=== PATIENT | male | born 1960 | race Caucasian/White ===

== ENCOUNTER 2022-03-29 11:55 | Observation (INO) | payer OTHER, SELFPAY ==
[2022-03-29] VITALS (8 sets, daily range): BP systolic 141–163; BP diastolic 88–106; PULSE 66–103; RESP 16–20; TEMP 36.6–36.8; O2SAT 96–100; BMI 30.7; BMI 28.7
--- NOTE | ~2022-03-29 | CT_ITS ---
EXAMINATION: CT diagnostic chest wo con DATE: 03/29/2022 13:16 INDICATION: Possible right upper lobe mass on x-ray TECHNIQUE: Computed tomography (CT) of the chest was performed without intravenous contrast. The dose -length product (DLP) was 531.53 mGy-cm. Automated exposure control and iterative reconstruction tech [employer] were employed. COMPARISON: Chest radiograph from today FINDINGS: No suspicious mass is identified. There is mild dependent atelectasis. Chest radiographic f indings likely reflect superimposed vascular and osseous structures. No pathologically enlarged thora cic lymph nodes are identified. The heart size is normal. There is mild thoracic spondylosis. IMPRESSION: 1. No CT correlate for the patient's symptoms. No suspicious lung mass identified. Reviewed, dictated and finalized at location A. IMPRESSION: 1. No CT correlate for the patient's symptoms. No suspicious lung mass identifi ed.
--- NOTE | ~2022-03-29 | CT_ITS ---
EXAMINATION: CT brain wo con INDICATION: Right-sided weakness COMPARISON: None TECHNIQUE: Standard unenhanced head CT. The dose-length product (DLP) was 605.33 mGy-cm. The mA was a djusted according to patient size. Iterative reconstruction technique was employed. FINDINGS: There is subtle low-attenuation involving the left caudate and anterior limb of the left in ternal capsule as well as in the posterior limb of the right internal capsule. The ventricles are nor mal. There is no abnormal mass effect or midline shift. The basal cisterns are patent. Intracranial c alcified cerebral atherosclerosis is noted. The orbits are normal. There are bilateral mastoid effusi ons. IMPRESSION: 1. Subtle areas of low attenuation as detailed above, consistent with age indeterminate infarct. Reviewed, dictated and finalized at location A. IMPRESSION: 1. Subtle areas of low attenuation as detailed above, consistent with age indet erminate infarct.
--- NOTE | ~2022-03-29 | MR_ITS ---
EXAMINATION: MR brain/brain stem wo/w con DATE: 03/30/2022 08:04 INDICATION: Right-sided weakness TECHNIQUE: Magnetic resonance imaging (MRI) of the brain and brainstem was performed without and with 18 mL Multihance intravenous contrast. Sequences included sagittal and axial T1-weighted SE, axial d iffusion-weighted FS SE, axial T2*-weighted GRE, axial 3D SWAN, axial T2-weighted FLAIR, and axial T2 -weighted FSE. Postcontrast axial and coronal T1-weighted SE was obtained. Apparent diffusion coeffic ient (ADC) maps were created. COMPARISON: Head CT and CT angiogram dated 03/29/2022 FINDINGS: There are no areas of restricted diffusion to suggest acute infarction. Small old lacunar infarcts in the periventricular anterior left frontal lobe white matter and in the left sublingual. No intracran ial hemorrhage or abnormal intracranial mass lesion. There are scattered areas of nonspecific increas ed T2-weighted signal intensity in the cerebral white matter, predominantly involving the deep and pe riventricular white matter. There are no intraparenchymal signal abnormalities seen on the other puls e sequences. The ventricles are symmetric and normal in size. There are no abnormal extra-axial fluid collections. Flow voids are seen in the cerebral arteries on the T2-weighted sequences consistent wi th their expected patency. Bilateral mastoid effusions, right greater than left. Small right maxillar y sinus with thickened sinus ramesh are evident on prior CT consistent with chronic sinusitis. Mild mu cosal thickening the bilateral ethmoid sinuses. Visualized orbits and soft tissues are unremarkable. There are no areas of abnormal enhancement on the post contrast images. IMPRESSION: 1. No acute intracranial process. 2. Small old lacunar infarcts at the left basal ganglia and periventricular left frontal lobe white m atter. 3. Mild scattered white matter T2 hyperintensity consistent with chronic small vessel ischemic diseas e. 4. Bilateral mastoid effusions, right greater than left. 5. Chronic right maxillary sinusitis. Reviewed, dictated and finalized at location A. IMPRESSION: 1. No acute intracranial process. 2. Small old lacunar infarcts at the left basal ganglia and periventricular lef t frontal lobe white matter. 3. Mild scattered white matter T2 hyperintensity consistent with chronic small vessel ischemic disease. 4. Bilateral mastoid effusions, right greater than left. 5. Chronic right maxillary sinusitis.
--- NOTE | ~2022-03-29 | CT_ITS ---
EXAMINATION: CTA brain carotid DATE: 03/29/2022 13:16 INDICATION: Right-sided weakness TECHNIQUE: Computed tomographic angiography (CTA) of the head was performed without and with 100 mL O [id number] intravenous contrast. CTA of the neck was performed with intravenous contrast. The dose- length product was 1283.51 mGy-cm. Maximum intensity projection and volume rendered 3D-reconstruction s were created by the technologist on a separate workstation. Automated exposure control and iterativ e reconstruction technique were employed. COMPARISON: None. FINDINGS: HEAD CTA: Again seen are subtle areas of hypoattenuation involving the left caudate, anterior limb of the left internal capsule, and the posterior limb of the right internal capsule. Also seen is a subt le area of low attenuation in the anterior to the anterior horn of the left lateral ventricle. Intrac ranial calcified cerebral atherosclerosis is noted. There is no intracranial hemorrhage or abnormal mass lesion. The ventricles are normal. There is no abnormal mass effect or midline shift. The basal cisterns are patent. The orbits are normal. The paranasal sinuses, mastoids and calvarium are normal. There is no significant stenosis of the basilar artery or posterior cerebral arteries. There is no si gnificant stenosis of the intracranial internal carotid arteries or the anterior or middle cerebral a rteries. The anterior communicating artery and right posterior communicating arteries are normal. The left posterior communicating artery is hypoplastic. There is no aneurysm. NECK CTA: The thyroid gland is unremarkable. The submandibular and parotid glands are symmetric. Ther e is no lymphadenopathy. There are no masses identified. The airway is unremarkable. There is moderat e cervical spondylosis at C5-6. The superior mediastinum is unremarkable. There is 0% stenosis of the proximal right internal carotid artery relative to normal distal artery l umen diameter (NASCET criteria). There is 0% stenosis of the proximal left internal carotid artery re lative to normal distal artery lumen diameter. IMPRESSION: 1. Areas of low-attenuation as detailed above, consistent with age indeterminate infarct. Hypoplastic left posterior communicating artery, otherwise normal head CTA. 2. 0% stenosis of the proximal right internal carotid artery relative to normal distal artery lumen d iameter (NASCET criteria). 3. 0% stenosis of the proximal left internal carotid artery relative to normal distal artery lumen di ameter. Reviewed, dictated and finalized at location A. IMPRESSION: 1. Areas of low-attenuation as detailed above, consistent with age indeterminat e infarct. Hypoplastic left posterior communicating artery, otherwise normal he ad CTA. 2. 0% stenosis of the proximal right internal carotid artery relative to normal distal artery lumen diameter (NASCET criteria). 3. 0% stenosis of the proximal left internal carotid artery relative to normal distal artery lumen diameter.
--- NOTE | ~2022-03-29 | XR_ITS ---
EXAMINATION: XR chest 1V portable INDICATION: Right-sided weakness TECHNIQUE: Portable AP chest at 1212 hours COMPARISON: None available FINDINGS: There is asymmetric focal opacification of the right lung apex. No pleural effusion or pneu mothorax. The cardiomediastinal silhouette is normal. IMPRESSION: 1. Asymmetric focal opacification of the right lung apex which could reflect superimposed vascular an d osseous structures however, further evaluation with chest CT is recommended to evaluate for soft ti ssue mass. Reviewed, dictated and finalized at location A. IMPRESSION: 1. Asymmetric focal opacification of the right lung apex which could reflect morrison perimposed vascular and osseous structures however, further evaluation with uzri st CT is recommended to evaluate for soft tissue mass.
--- NOTE | 2022-03-29 12:14 | ED.NEUROSD ---
HPI - Neuro Symptoms/Deficit General Chief Complaint: Neuro Symptoms/Deficit Stated Complaint: Right Arm/Leg Weakness Time Seen by Provider: 03/29/22 12:02 Source: RN notes reviewed History of Present Illness HPI Narrative: Patient presents emergency department from home via EMS for right-sided weakness. Patient states symptoms began approximately 10:15 AM. He states his nephew called and they were going to play fortnight while when he began to notice that when he was using control he was having difficulty using his right thumb he states he then noticed he was having some problems speaking and finding the right words patient states at that time he had gotten up and noticed his right leg was also weak as well as his right arm he had gone to the [employer] store to get aspirin and water as he felt he had been dehydrated states his symptoms improved but then came back at the store he states that this time he is feeling better and all symptoms have resolved he denied having fevers or chills he denied chest pain shortness of breath abdominal pain nausea vomiting or any other symptoms Related Data Allergies Allergy/AdvReac Type Severity Reaction Status Date / Time Penicillins Allergy Hives Verified 03/29/22 13:39 Review of Systems Review of Systems: Gen.: Denies fevers or chills Eyes: Denies eye pain or visual change ENT: Denies congestion Respiratory: Denies shortness of breath or cough CV: Denies chest pain or palpitations GI: Denies abdominal pain nausea, emesis or diarrhea denies burning, urgency, frequency or hematuria Musculoskeletal: Denies back pain or muscle pain Neuro: See HPI Skin: Denies rash Except as documented, all other systems reviewed and negative [facility] Past Medical History Medical History (Updated 03/29/22 @ 14:28 by Devon Al DO) Patient denies significant medical history Social History Social History (Updated 03/29/22 @ 12:18 by Devon Al DO) Smoking status: Never smoker Exam Narrative: APPEARANCE: No acute distress, nontoxic, resting in bed HEENT: Normocephalic, atraumatic, OMM, TMs clear bilaterally EYES: PERRL, EOMI NECK: Supple, nontender, full range of motion without pain, no meningismus RESPIRATORY: No respiratory distress, clear to auscultation bilaterally with no rhonchi wheezing or rales CARDIOVASCULAR: RRR s murmur ABDOMINAL: Soft, nontender, nondistended MUSCULOSKELETAL: Moves all extremities. No clubbing, cyanosis or edema. NEURO: A and O ?3, following commands, speech normal, cranial nerves II through XII grossly intact,muscle strength 5 out of 5 bilateral upper and lower extremities SKIN:: Warm, dry. Normal Color PSYCHIATRIC: Normal affect/mood Course Course Emergency Course: Discussed with Dr. Velásquez agrees with consult recommends patient start on aspirin 325 mg as well as Plavix agrees with consult recommends CT of the head as well as MRI Discussed with JESSICA Henriquez for Dr. Paz agrees with admission Discussed with patient and family results of workup and diagnosis. Discussed need for admission. Patient and family understand and agree to current treatment plan Vital Signs Vital signs: Vital Signs Temperature 98.2 F 03/29/22 12:03 Pulse Rate 103 H 03/29/22 12:03 Respiratory Rate 20 03/29/22 12:03 Blood Pressure 163/106 H 03/29/22 12:03 Pulse Oximetry 100 03/29/22 12:03 Temperature 98.2 F 03/29/22 12:03 Pulse Rate 101 H 03/29/22 12:10 Respiratory Rate 17 03/29/22 12:10 Blood Pressure 163/106 H 03/29/22 12:10 Pulse Oximetry 100 03/29/22 12:40 MDM - Neuro Symptoms/Deficit Lab Data Result diagrams: 03/29/22 12:09 03/29/22 12:09 Labs: Lab Results 03/29/22 03/29/22 03/29/22 Range/Units 12:09 12:09 12:09 WBC 8.4 (4.5-10.0) K/mm3 RBC 5.82 (4.6-6.20) M/mm3 Hgb 17.4 (14.0-18.0) g/dL Hct 51.0 (42.0-52.0) % MCV 87.6 (80-100) fl MCH 29.9 (26-34) pg MCHC 34.1
[2022-03-29 12:19] LABS: Basophils Percent Auto 0.5 % (0.2-1.2); Eosinophils Absolute Auto 0.2 K/mm3 (0-0.3); Eosinophils Percent Auto 2.5 % (0-4.4); Hemoglobin 17.4 g/dL (14.0-18.0); Immature Granulocyte Absolute 0.05 K/mm3 (0.00-0.031); Immature Granulocyte Percent A 0.6 % (0-0.5); Lymphocytes Absolute Auto 2.68 K/mm3 (0.9-3.2); Lymphocytes Percent Auto 31.8 % (18.3-44.2); Mean Corpuscular HGB Conc 34.1 g/dl (32-36); Mean Corpuscular Hemoglobin 29.9 pg (26-34); Mean Corpuscular Volume 87.6 fl (80-100); Mean Platelet Volume 10.2 fl (7.4-10.4); Monocytes Absolute Auto 0.8 K/mm3 (0.1-0.6); Neutrophils Absolute Auto 4.7 K/mm3 (1.3-6.7); Neutrophils Percent Auto 55.6 % (45.5-73.1); Platelet Count Result 234 k/mm3 (150-375); Red Blood Count 5.82 M/mm3 (4.6-6.20); Red Cell Distribution Width 14.6 % (11.5-14.5); White Blood Count 8.4 K/mm3 (4.5-10.0)
[2022-03-29 12:32] LABS: Alanine Aminotransferase 33 U/L (6-50); Albumin Level 4.2 g/dL (3.5-5.1); Alkaline Phosphatase 53 U/L (38-126); Anion Gap 7 mmol/L (8-16); Aspartate Amino Transferase 30 U/L (17-59); Bilirubin,Total 0.4 mg/dL (0.2-1.3); Blood Urea Nitrogen 9 mg/dL (9-20); Calcium 8.6 mg/dL (8.4-10.2); Carbon Dioxide 23 mmol/L (22-30); Chloride 107 mmol/L (98-107); Estimated CRCL calculation 105 ml/min; Estimated Glomerular Filt Rate > 60; Glucose 102 mg/dL (65-110); Potassium 3.9 mmol/L (3.4-5.0); Sodium 137 mmol/L (137-145)
[2022-03-29 12:37] LABS: Prothrombin Time 12.5 Seconds (11.1-14.7)
[2022-03-29] MEDS: SODIUM CHLORIDE 0.9% IV 1,000 ML 999 ML IV CONT (12:37)
[2022-03-29 12:38] LABS: Partial Thromboplastin Time 27.3 SECONDS (22.3-36.8)
[2022-03-29 12:43] LABS: Troponin I < 0.012 ng/mL (0.000-0.034)
[2022-03-29 13:24] LABS: Glucose Point of Care 98 mg/dl (65-105)
--- NOTE | 2022-03-29 13:40 | PM.IMHP ---
H&P: HPI History of Present Illness Date/Time: 03/29/22 13:45 Chief Complaint: Right-sided weakness. Narrative: This is a 61-year-old male with hyperlipidemia who presented to the emergency department via EMS for evaluation of right-sided weakness. At about 10:15 was on the phone when began having difficulties manipulating his right hand. He also has some difficulties with his speech and when he stood up he noticed that his right arm leg were weak. The symptoms resolved within approximately 20 to 30 minutes. He was concerned that his symptoms may be related to a stroke or even dehydration (he has been working hard the past few days as he is in the process of selling his home and moving to [place]) and he went to the store to get aspirin and some water. His symptoms returned while at the store and he was then brought in for evaluation. Brain CT showed subtle areas of low attenuation in in several regions consistent with age-indeterminate infarct and he is being admitted in this setting. Blood pressure on arrival was 163/106 and repeat blood pressures have been in the 140s to 150s systolic however he has no known history of hypertension and it seems as though he follows up with his physician regularly. He believes is hyperlipidemia is controlled on medication. He previously took an aspirin daily but he has fallen out of the habit. At the time my evaluation he is seated in a chair at the side of the bed and he seems to be comfortable. He has no current complaints and denies having previous similar episodes. Review of Systems Review of Systems: Twelve systems were reviewed. No auditory visual changes. No facial droop. No chest pain or shortness of breath. No palpitations or sensation of racing heart. No known history of hypertension. No history of cardiac disease or dysrhythmia. Echocardiogram done greater than 5 years ago for mild EKG abnormality was unremarkable, per patient report. Patient uses topical testosterone has for at least 5 to 6 years. Except as documented, all other systems were reviewed and negative. [facility] Past Medical History Medical History (Updated 03/29/22 @ 17:57 by Florence Purdy PA-C) Anxiety Dyslipidemia Human immunodeficiency virus Surgical History Surgical History (Updated 03/29/22 @ 17:30 by Florence Purdy PA-C) No pertinent past surgical history Family History Family History Father Cerebrovascular accident Mother Urinary tract infection Social History Social History (Updated 03/29/22 @ 17:32 by Florenec Purdy PA-C) Social History: Surrogate decision maker: Taya Chao, friend. Code status: Full code. Smoking status: Current every day smoker Tobacco type: cigars Additional smoking assessment comments: 2 to 3 cigars per day. Alcohol intake: current Drinks per week: 3 Substance use: current Substance use type: other Other substance usage details: THC Last use: 03/29/22 Living arrangements: alone Additional living arrangements comments: He is in the process of moving to [place]. Additional occupation/education comments: Retiring from [employer] this week. Spiritual care concerns: No Agree to blood products: Yes Meds Home Medications and Allergies Home Medications Medication Instructions Recorded Confirmed Type alprazolam 0.25 mg tablet 1 tablet PO PRN 03/29/22 03/29/22 History atorvastatin 20 mg tablet 1 tablet PO DAILY 03/29/22 03/29/22 History dolutegravir 50 mg-rilpivirine 25 1 tablet PO DAILY 03/29/22 03/29/22 History mg tablet (Juluca) ergocalciferol (vitamin D2) 1,250 1 cap PO WEEKLY 03/29/22 03/29/22 History mcg (50,000 unit) capsule testosterone 30 mg/actuation (1.5 3 ml transdermal DAILY 03/29/22 03/29/22 History mL) transderm solution metered pump Allergies Allergy/AdvReac Type Severity Reaction Status Date / Time Penicillins Allergy Hives Verif
[2022-03-29] MEDS: CLOPIDOGREL BISULFATE 75 MG TABLET PO (14:29)
[2022-03-29] MEDS: ASPIRIN 81 MG CHEWABLE TABLET 324 MG PO (14:29)
--- NOTE | 2022-03-29 15:13 | ADMGEN ---
This patient, Gage Mahoney, was admitted to Medical Room 347-. Patient/family oriented to hospital policies and general routines including ID bracelet, bed and alarms, visiting hours, pain management, procedures, bathroom and other care routines, personal items, smoking policy, room service/diet, and visiting hours. Information on how to activate the Rapid Response Team has been discussed. Patient/Family are encouraged to report perceived risks to care and to ask questions if they do not understand what they are told or what they should do.
[2022-03-29 16:55] LABS: Troponin I < 0.012 ng/mL (0.000-0.034)
[2022-03-30] VITALS: PULSE 83
[2022-03-30 04:00] VITALS: PULSE 72
[2022-03-30 05:23] VITALS: BP 153/92; PULSE 86; RESP 18; TEMP 36.1; O2SAT 99
[2022-03-30 05:55] LABS: Cholesterol 203 mg/dL (0-200); HDL Direct 31 mg/dL; Triglycerides 251 mg/dL (<150)
[2022-03-30 06:05] LABS: LDL Cholesterol Direct 114 mg/dL
--- NOTE | 2022-03-30 09:45 | PM.DS ---
DS: Admitting Diagnosis Discharge Date 03/30/22 0945 Admitting Diagnosis TIA DS: Discharge Diagnosis Discharge Diagnosis (1) Cerebral infarction: Code(s): I63.9 - Cerebral infarction, unspecified Status: Acute Assessment and Plan: Brain MRI shows old infarct Head ct shows infarct Head and neck CT shows 0% stenosis Symptom resolved Echo pending Aspirin and Plavix started Will need to follow up with neurology in 3 months (2) Dyslipidemia: Code(s): E78.5 - Hyperlipidemia, unspecified Status: Acute Assessment and Plan: Talked to the patient about increasing his atorvastatin and he stated that he does not take that medication right anyway and would prefer to stay on the 20mg PO daily I did explain the risk and benefits of the medications which he stated he understood. (3) Elevated blood pressure reading: Code(s): R03.0 - Elevated blood-pressure reading, without diagnosis of hypertension Status: Acute Assessment and Plan: BP 153/92 Continue home medication Trend BP Adjust therapy as indicated (4) Transient ischemic attack: Code(s): G45.9 - Transient cerebral ischemic attack, unspecified Status: Acute (5) Human immunodeficiency virus: Code(s): B20 - Human immunodeficiency virus [HIV] disease Status: Acute Plan The patient had 2 episodes of right-sided weakness with some speech disturbances this morning, both which resolved within 30 minutes. History seems more consistent with TIA however brain CT and subsequent CTA of the brain and carotids demonstrate multiple areas of hypoattenuation consistent with age-indeterminate infarcts. Precipitating etiology is unclear at this time though his blood pressures have been consistently elevated since arrival however he has no history of hypertension. At this time we will allow permissive hypertension with close monitoring of blood pressures. Depending on how he trends, he may very well end up needing to be started on antihypertensives. There was 0% stenosis noted in the bilateral internal carotid arteries. Echocardiogram with bubble study has been ordered for further evaluation. He will be monitor on telemetry overnight evaluate for possible cardiac dysrhythmia however he gives no history to suggest such. He has used transdermal testosterone daily for 5 to 6 years which could rarely put him at higher risk for stroke. At this time will continue with atorvastatin 20 mg daily and check lipids in a.m. We did briefly discuss higher intensity statins however he would like to discuss this with his own doctor. I encouraged him to speak with his doctor as well about the testosterone gel. Dr. Velásquez was consulted by the ED physician his input is appreciated. He recommended aspirin 324 mg and clopidogrel 75 mg x1 today and I will start him on aspirin 81 mg daily. Additionally the patient smokes about 3 cigars a day and he was encouraged to stop. DS: Summary Hospital Course Hospital Course: Patient is a 7-year-old male with past medical history of anxiety, hyperlipidemia, HIV who presented to the ED with unilateral arm and leg weakness. Brain MRI did show some chronic infarcts, CT of the head showed indeterminate age of an infarct. Head and neck CTA showed less than 50% stenosis in the bilateral carotid bulbs. Echo was also performed. Patient stated he is feeling pretty good. Patient was also complaining of ear pain and did state that he got a little bit of fluid out of his right ear. Upon examination his right ear did have some white clumps be drainage in the canal. Patient was started on cefdinir. Patient was also started on Plavix aspirin and was talked to about increasing his atorvastatin since he is on 20 mg p.o. daily. S patient is not ready to increase his atorvastatin risk and benefits has been given to the patient her he would prefer just to stay was 20 has. Patient was also requesting her nerves which is ho
[2022-03-30] MEDS: ASPIRIN 81 MG ENTERIC TABLET PO (10:02)
[2022-03-30] MEDS: ATORVASTATIN 20 MG TABLET PO (10:02)
--- NOTE | 2022-03-30 11:24 | WPDNEURCNPN ---
Assessment and Plan Assessment and plan (1) TIA (transient ischemic attack): Code(s): G45.9 - Transient cerebral ischemic attack, unspecified Status: Acute Plan 1 TIA 2 hypertension 3 subcortical small strokes on the basis of small vessel disease for will benefit from the bubble study and SHAI Consult date: 03/30/22 Time Seen: 10:00 Reason for consult: right-sided weakness HPI: Gage Mahoney is a 61 year old male admitted to the hospital through the emergency room where he was brought by EMS for the complaints of right-sided weakness since 10:15 a.m. reportedly nephew called and they were going to play [place] while he began to notice that he was using control but still having difficulties using his right thumb and also some difficulties in finding the right words to communicate and when he got up his right lower extremity was weak as well he went to the [place] pickup aspirin and came to the hospital known to be allergic to penicillin initial examination was normal including the vital sign except blood pressure of 163/106 and routine lab studies were normal except for chest x-ray with the right lung apex asymmetrical opacity of focal distribution. He has fallen off the habit of taking aspirin on a regular basis but does have ongoing history of anxiety, dyslipidemia, and human immune deficiency virus, is currently everyday smoker and alcohol intake at least 3 drinks per week in home medications include alprazolam 0.25 mg daily atorvastatin 20 mg daily testosterone 3cc transdermal daily and juluca 1 tablet daily initial exam in the ER was nonfocal and brain MRI documented small old lacunar infarct in the left basal ganglia and periventricular left frontal lobe white matter in addition to mild scattered white matter T2 hyperintensities consistent with chronic small vessel ischemic disease CT of the chest negative, CTA documented subtle area of hypoattenuation involving the left caudate anterior limb of left internal capsule and posterior limb of the right internal capsule in addition to subtle area of low attenuation in the anterior to anterior horn of the left lateral ventricle there was no bleed ventricles were normal and there was no significant stenosis of any territorial arteries except 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 but no aneurysm Review of Systems Review of Systems: All systems reviewed & are unremarkable except as noted in HPI and below PMFSH Past Medical History Medical History (Updated 03/30/22 @ 11:37 by Rolando Velásquez MD) Anxiety Dyslipidemia Human immunodeficiency virus Surgical History Surgical History (Updated 03/29/22 @ 17:30 by Florence Purdy PA-C) No pertinent past surgical history Family History Family History Father Cerebrovascular accident Mother Urinary tract infection Social History Social History (Updated 03/29/22 @ 17:32 by Florence Purdy PA-C) Social History: Surrogate decision maker: Taya Romoer, friend. Code status: Full code. Smoking status: Current every day smoker Tobacco type: cigars Additional smoking assessment comments: 2 to 3 cigars per day. Alcohol intake: current Drinks per week: 3 Substance use: current Substance use type: other Other substance usage details: THC Last use: 03/29/22 Living arrangements: alone Additional living arrangements comments: He is in the process of moving to [place]. Additional occupation/education comments: Retiring from [employer] this week. Spiritual care concerns: No Agree to blood products: Yes Meds Home Medications and Allergies Home Medications Medication Instructions Recorded Confirmed Type alprazolam 0.25 mg tablet 1 tablet PO PRN 03/29/22 03/29/22 History atorvastatin 20 mg tablet 1 tablet PO DAILY 03/29/22 03/29/22 History dolutegravir 50 mg-rilpivirine 25 1 tablet PO
[2022-03-30 12:00] VITALS: PULSE 88
[2022-03-30 13:47] VITALS: BP 169/97; PULSE 72; RESP 16; TEMP 36.9; O2SAT 100
--- NOTE | 2022-03-30 15:28 | ECHO_ITS ---
Patient Info Name: Gage Mahoney Age: 61 years : 1960 Gender: Male Ht: 69 in Wt: 194 lbs BSA: 2.09 m2 HR: 72 bpm BP: 153 / 92 mmHg Technical Quality: Good Exam Date: 03/30/2022 11:13 AM Exam Location: [facility] Pulmonary Exam Room: 347 Patient Status: Outpatient Admit Date: 03/29/2022 Staff Ordering Physician: Florence Purdy PA-C [employer]ite Renew[employer] Inspector: Faby Duran RDCS Attending Provider: Denisha Paz DO Referring Physician: Gurwinder HERNANDEZ; Exam Type: CA echo doppler w bubble study Study Info Indications - TIA Complete two-dimensional, color flow and Doppler transthoracic echocardiogram is performed with agitated saline. Contrast/Agitated Saline Contrast/Ag. Saline: Agitated Saline Amount: 20.00 ml Administered By: Mili Dockery RDCS Existing IV Access: Yes Summary 1. Left ventricular chamber dimension is normal. 2. Left ventricular systolic function is normal, estimated at 60-65%. 3. There is mildly increased left ventricular wall thickness. 4. The left ventricular diastolic function is grade I diastolic dysfunction. 5. E/e' 14 is mildly elevated. 6. Left atrial chamber dimension is moderately enlarged. 7. There is severe aortic valve sclerosis. 8. There is mild aortic valve stenosis with a peak velocity of 186 cm/s, mean gradient of 7 mmHg, and aortic valve area of 2.2 cm2. 9. The mitral valve has moderately calcified annulus. 10. There is trace mitral valve regurgitation. 11. No pulmonary hypertension, estimated pulmonary arterial systolic pressure is 27 mmHg. Left Ventricle E/e' 14 is mildly elevated. Left ventricular chamber dimension is normal. Left ventricular systolic function is normal, estimated at 60-65%. There is mildly increased left ventricular wall thickness. The left ventricular diastolic function is grade I diastolic dysfunction. Right Ventricle Right ventricular chamber dimension is normal. Right ventricular systolic function is normal. Left Atria Left atrial chamber dimension is moderately enlarged. Right Atria Right atrial chamber dimension is normal. Atrial Septum Agitated saline injection with and without valsalva maneuver opacified right side cardiac chambers without shunt to left side cardiac chambers. Intact interatrial septum visualized by 2D and agitated saline imaging. Aortic Valve The aortic valve is trileaflet. There is severe aortic valve sclerosis. There is mild aortic valve stenosis with a peak velocity of 186 cm/s, mean gradient of 7 mmHg, and aortic valve area of 2.2 cm2. There is no aortic valve regurgitation. Pulmonic Valve There is no pulmonic regurgitation. Mitral Valve The mitral valve has moderately calcified annulus. There is no mitral valve stenosis. There is trace mitral valve regurgitation. Tricuspid Valve There is no tricuspid valve regurgitation. No pulmonary hypertension, estimated pulmonary arterial systolic pressure is 27 mmHg. Pericardium/Pleural There is no pericardial effusion. Inferior Vena Cava Normal inferior vena cava with >50% collapse upon inspiration consistent with normal right atrial pressure, 5 mmHg. Aorta The aortic root size at the sinus of Valsalva is normal. Left Ventricular Outflow Tract Name Value Normal
== END 2022-03-30 15:26 | disposition home or self-care (01) ==
LOC: ANHED 14:28 → ANH3MED 15:23
PROVIDERS: Physician Assistant; Admitting Provider Student in an Organized Health Care Education/Training Program; Emergency Provider Emergency Medicine; Visit Provider Nurse Practitioner
DX: G45.9 Transient cerebral ischemic attack, unspecified (principal); R53.1 Weakness; E78.5 Hyperlipidemia, unspecified; F17.290 Nicotine dependence, other tobacco product, uncomplicated; R03.0 Elevated blood-pressure reading, without diagnosis of hypertension; B20 Human immunodeficiency virus [HIV] disease; Z86.73 Personal history of transient ischemic attack (TIA), and cerebral infarction without residual deficits
CPT/HCPCS: 36415; 70450; 70496; 70498; 70553; 71045; 71250; 80053; 80061; 82948; 84484; 85025; 85610; 85730; 93005; 93306; 96360; 96375; 99285; A9270; A9577; G0378; J7030; Q9967